=== PATIENT | male | born 1980 | race Caucasian/White ===

== ENCOUNTER → 2021-11-14 13:34 | Outpatient (BNVA) | payer MEDICARE, SELFPAY | PROVIDERS: PCP Family Medicine; Visit Provider Nurse Practitioner | DX: R10.9 Unspecified abdominal pain (principal) | CPT/HCPCS: 74018; 87086 ==

== ENCOUNTER 2021-12-26 12:38 | Outpatient (CLI) | payer MEDICARE, SELFPAY ==
--- NOTE | 2021-12-26 14:00 | CT_ITS ---
WS: [id number] CT ABDOMEN PELVIS TECHNIQUE: Contrast-enhanced CT of the abdomen and pelvis with coronal and sagittal reformatted image s. CLINICAL INFORMATION: R10.9 - Unspecified abdominal pain COMPARISON: None. DLP: 1350.[address] scans at [facility] use at least one of these dose optimization techniques: automated e xposure control; mA and/or kV adjustment per patient size (includes targeted exams where dose is matc hed to clinical indication); or iterative reconstruction. FINDINGS: Lung bases are well aerated. Prior postoperative changes pedicle screw fixation with interbody fusion L4-L5. Diffuse fatty infiltration of the liver. Normal gallbladder. Normal portal vein and splenic v ein. Normal spleen. Normal GE junction. Adrenal glands are normal. Normal caliber abdominal aorta. Ce liac and SMA are patent. Normal renal parenchymal enhancement. No obstructing renal or ureteral calculi. No hydronephrosis. Normal sigmoid colon. Normal appendix in the RIGHT lower quadrant. Tiny fat-containing umbilical nany ia. CT/CT abdomen pelvis w con* [id number] IMPRESSION: 1. Diffuse fatty infiltration of the liver. 2. Normal renal parenchymal enhancement. 3. No hydronephrosis in either kidney. No obstructing renal or ureteral calcul i. 4. Normal appendix in the RIGHT lower quadrant. 5. No free fluid in the abdomen or pelvis. 6. No other suspicious findings.
[2021-12-26] MEDS: iohexol 350 mg/mL 100 mL Btl IV (14:21)
[2021-12-26] MEDS: iohexol 350 mg/mL 100 mL Btl PO (14:23)
== END 2021-12-26 12:39 | disposition home or self-care (01) ==
PROVIDERS: PCP Family Medicine; Visit Provider Nurse Practitioner
DX: R10.9 Unspecified abdominal pain (principal); R31.9 Hematuria, unspecified; K76.0 Fatty (change of) liver, not elsewhere classified
CPT/HCPCS: 74177

== ENCOUNTER → 2022-02-06 14:47 | Outpatient (BNVA) | payer MEDICARE, SELFPAY | PROVIDERS: PCP Family Medicine; Visit Provider Family Medicine | DX: N52.9 Male erectile dysfunction, unspecified (principal); N40.0 Benign prostatic hyperplasia without lower urinary tract symptoms; Z09 Encounter for follow-up examination after completed treatment for conditions other than malignant neoplasm; R35.89 Other polyuria; K76.0 Fatty (change of) liver, not elsewhere classified; K58.9 Irritable bowel syndrome, unspecified; Z12.5 Encounter for screening for malignant neoplasm of prostate; M54.50 Low back pain, unspecified; G89.29 Other chronic pain; M54.16 Radiculopathy, lumbar region | CPT/HCPCS: 80053; 80061; 81000; 84443; 85025; G0103 ==

== ENCOUNTER → 2022-05-29 15:06 | Outpatient (BNVA) | payer MEDICARE, SELFPAY | PROVIDERS: PCP Family Medicine; Visit Provider Urology | DX: N40.1 Benign prostatic hyperplasia with lower urinary tract symptoms (principal); N13.8 Other obstructive and reflux uropathy; N52.9 Male erectile dysfunction, unspecified; R39.9 Unspecified symptoms and signs involving the genitourinary system | CPT/HCPCS: 51741; 51798; 81003; 99204 ==

== ENCOUNTER → 2022-06-12 11:36 | Outpatient (BNVA) | payer MEDICARE, SELFPAY | PROVIDERS: PCP Family Medicine; Visit Provider Family Medicine | DX: Z79.899 Other long term (current) drug therapy (principal); R10.32 Left lower quadrant pain; M54.50 Low back pain, unspecified; G89.29 Other chronic pain; K76.0 Fatty (change of) liver, not elsewhere classified | CPT/HCPCS: 80307 ==

== ENCOUNTER → 2023-10-08 10:34 | Outpatient (BNVA) | payer MEDICARE, SELFPAY | PROVIDERS: PCP Nurse Practitioner Family; Visit Provider Nurse Practitioner Family | DX: E66.9 Obesity, unspecified (principal); N40.0 Benign prostatic hyperplasia without lower urinary tract symptoms; N52.9 Male erectile dysfunction, unspecified; M54.50 Low back pain, unspecified; G89.29 Other chronic pain | CPT/HCPCS: 80053; 85025 ==